=== PATIENT | male | born 1980 | race Caucasian/White ===

== ENCOUNTER 2021-01-28 05:29 | Day surgery (SDC) | payer MEDICAID ==
[~2021-01-28] VITALS: Ht 182.9 cm; Wt 81.1 kg
[2021-01-28] VITALS (7 sets, daily range): BP systolic 85–126; BP diastolic 39–83; PULSE 64–76; TEMP 97–97.8
[2021-01-28] MEDS ORDERED: AMOXICILLIN 8751 TAB PO (06:30)
[2021-01-28] MEDS ORDERED: PRINIVIL2.5 MG PO (06:30)
[2021-01-28] MEDS ORDERED: LIPITOR 40MG TA40 MG PO (06:30)
[2021-01-28] MEDS ORDERED: SYNTHROID0.137 MG PO (06:31)
[2021-01-28] MEDS ORDERED: FLOMAX 0.40.4 MG/CAP PO (06:31)
[2021-01-28] MEDS ORDERED: HUMALOG100 U/ML SQ (06:32)
[2021-01-28] MEDS ORDERED: PROAIR HFA0.09 MG/AC IH (06:32)
[2021-01-28] MEDS ORDERED: NORCO 325 MG-51 TAB PO ×4 (08:02→08:16)
--- NOTE | 2021-01-28 08:08 | NUR ---
Pt returns to [facility] from OR, sedated, breathing well on own. Ricco [employer] remains at bedside until pt more arousable. Post-op vital monitor set. Girlfriend at bedside. Delgado catheter draining from suprapubic catheter and dressing clean and dry. Will continue to monitor.
--- NOTE | 2021-01-28 08:20 | NUR ---
Pt arousable to name, sedated and unable to answer questions. VSS. O2/6L/Mask remains in place. Breathing well on his own. Call light in reach.
--- NOTE | 2021-01-28 08:35 | NUR ---
Pt awakens easily and O2/Mask removed. Shivering, and complaining of pain, warm blanket provided. Pt also feels like he needs to have a BM. See Emar for medication times.
--- NOTE | 2021-01-28 09:10 | NUR ---
Pt awake and alert, tolerates a muffin and water well. See Emar for Percocet administration. VSS. Call light in reach.
--- NOTE | 2021-01-28 09:35 | NUR ---
Pt wanting to go home, awake and alert and reports pain is now manageable. VSS. IV discontinued to right hand. Delgado bag provided and pt educated and demonstrates how to put the bag on. All questions answered, education provided to pt and his girlfriend. Pt taken out via wheelchair to private car and left in care of his girlfriend.
== END 2021-01-28 10:05 | disposition home or self-care (01) ==
LOC: SDCO 05:29
DX: R33.9 Retention of urine, unspecified (principal); N31.2 Flaccid neuropathic bladder, not elsewhere classified; E10.42 Type 1 diabetes mellitus with diabetic polyneuropathy; E03.9 Hypothyroidism, unspecified; E78.5 Hyperlipidemia, unspecified; I69.354 Hemiplegia and hemiparesis following cerebral infarction affecting left non-dominant side; I10 Essential (primary) hypertension; F17.210 Nicotine dependence, cigarettes, uncomplicated; Z79.4 Long term (current) use of insulin; Z79.899 Other long term (current) drug therapy; Z96.41 Presence of insulin pump (external) (internal)
CPT/HCPCS: C1769; J0690; J2250; J2704; J3010; J7120